=== PATIENT | male | born 1980 | race Caucasian/White ===

== ENCOUNTER → 2022-08-07 17:47 | Outpatient (CLI) | payer OTHER, SELFPAY ==
[2022-08-07 18:18] LABS: Alanine Aminotransferase 28 U/L (12-78); Albumin Level 4.3 g/dl (3.5-5.0); Albumin/Globulin Ratio 1.3 (1.1-1.8); Alkaline Phosphatase 71 U/L (38-126); Aspartate Amino Transferase 36 U/L (17-59); Bilirubin,Total 0.6 mg/dl (0.2-1.3); Blood Urea Nitrogen 11 mg/dl (9-20); Carbon Dioxide 25 mmol/L (22.0-30.0); Chloride 100 mmol/L (98-107); Chol/HDL Ratio 6.1 (1-3.5); Cholesterol 202 mg/dl (140-200); Estimated Glomerular Filt Rate 106 ml/min (>60); GFR (African American) 128 ML/MIN (>60); Globulin 3.3 g/dL (1.3-3.2); Glucose 78 mg/dl (74-100); HDL Cholesterol 33 mg/dl (40-60); Sodium 138 mmol/L (136-145); Total Protein,Serum 7.6 g/dl (6.3-8.2); Triglycerides 192 mg/dl (30-150); VLDL Cholesterol 38 mg/dL (0-40)
[2022-08-07 18:22] LABS: Basophils # 0.1 K/mm3 (0-0.2); Basophils % 0.6 % (0.1-2.0); Eosinophils # 0.2 K/mm3 (0.0-0.4); Eosinophils % 1.3 % (0.1-12.0); Hematocrit 47.6 % (42.0-52.0); Hemoglobin 15.8 g/dL (14.1-18.0); Lymphocytes # 1.7 K/mm3 (0.7-4.5); Lymphocytes % 13.2 % (10-50); Mean Corpuscular HGB Conc 33.3 g/dL (31.8-35.4); Mean Corpuscular Hemoglobin 30.4 pg (27.0-31.2); Mean Corpuscular Volume 91.2 fl (80-94); Mean Platelet Volume 8.1 fl (7.4-10.4); Monocytes # 0.7 K/mm3 (0.1-1.0); Monocytes % 5.6 % (1.7-9.3); Neutrophils % 79.3 % (37.0-80.0); Platelet Count 312 K/mm3 (142-424); Red Blood Count 5.22 M/mm3 (4.60-6.20); Red Cell Distribution Width 13.8 % (11.5-17.5); White Blood Count 12.6 K/mm3 (4.8-10.8)
[2022-08-07 18:30] LABS: Direct LDL Cholesterol 134.26 mg/dL (100-129)
[2022-08-07 18:41] LABS: Hemoglobin A1C 5.2 % (4.0-6.0)
[2022-08-09 12:09] LABS: Testosterone,Total 225 ng/dL (264-916)
== END ==
PROVIDERS: PCP Student in an Organized Health Care Education/Training Program; Visit Provider Student in an Organized Health Care Education/Training Program
DX: I10 Essential (primary) hypertension (principal); R53.83 Other fatigue
CPT/HCPCS: 80053; 80061; 83036; 84403; 84443; 85025

== ENCOUNTER → 2022-08-24 | Outpatient (CLI) | payer OTHER, SELFPAY ==
[2022-08-26 09:09] LABS: Testosterone,Total 175 ng/dL (264-916)
== END ==
PROVIDERS: PCP Family Medicine; Visit Provider Family Medicine
DX: N52.9 Male erectile dysfunction, unspecified (principal)
CPT/HCPCS: 84403

== ENCOUNTER → 2022-12-04 08:03 | Outpatient (CLI) | payer OTHER, SELFPAY ==
--- NOTE | 2022-12-04 08:03 | US_ITS ---
FINAL REPORT CLINICAL HISTORY: epigastric and RUQ pain FINDINGS: Sonographic images of the abdomen were obtained. The liver has increased echogenicity consistent with fatty infiltration. The gallbladder has an unremarkable appearance without evidence of gallstones. There is no evidence of biliary ductal dilatation. The common hepatic duct measures 2 mm, which is within normal limits. Limited images of the pancreas are unremarkable. The spleen is borderline enlarged measuring 12.8 cm in length. The right kidney measures 10.6 cm in length. The left kidney measures 10.9 cm in length. There is normal renal echogenicity. There is no evidence of hydronephrosis. The aorta has an unremarkable appearance. Limited images of the inferior vena cava are unremarkable. IMPRESSION: Fatty liver. Borderline splenomegaly. Reviewed, Interpreted and Dictated by Eligio Ozuna III, MD Transcribed by Arcelia Aldana Authenticated and [facility]
== END ==
LOC: RAD 08:03
PROVIDERS: PCP Family Medicine; Visit Provider Family Medicine
DX: R10.9 Unspecified abdominal pain (principal); I10 Essential (primary) hypertension
CPT/HCPCS: 76700

== ENCOUNTER → 2022-12-27 10:12 | Outpatient (CLI) | payer OTHER, SELFPAY ==
--- NOTE | 2022-12-27 10:12 | NM_ITS ---
FINAL REPORT CLINICAL HISTORY: possible dysfunction of gallbladder 10:55 am 7.96 mci tc choletec injected into lt ant 2.7 mcg of cck no pain during cck neg u/s gb on12/04/22 FINDINGS: Sequential anterior projection images of the abdomen were obtained after the intravenous injection of 7.96 mCi technetium 99m Choletec. There is normal uptake of radiotracer by the liver. The bile ducts are visualized by 5 minutes. Gallbladder activity is seen by 20 minutes. After 1 hour, 2.7 ?g of CCK was injected intravenously for calculation of gallbladder ejection fraction. There is prompt visualization of the bowel. The gallbladder ejection fraction is 66%, which is within normal limits. IMPRESSION: No evidence of cystic duct or bile duct obstruction. Normal gallbladder ejection fraction of 66 %. Reviewed, Interpreted and Dictated by Eligio Ozuna III, MD Transcribed by Arcelia Aldana Authenticated and [facility]
== END ==
LOC: RAD 10:12
PROVIDERS: PCP Family Medicine; Visit Provider Family Medicine
DX: R10.9 Unspecified abdominal pain (principal)
CPT/HCPCS: 78227; A9537; J2805

== ENCOUNTER → 2023-01-03 13:46 | Outpatient (CLI) | payer OTHER, SELFPAY ==
[2023-01-03 13:54] LABS: MANUAL DIFFERENTIAL MANUAL DIFFERENTIAL (MANUAL DIFF)
[2023-01-03 15:04] LABS: Basophils # 0.1 K/mm3 (0-0.2); Basophils % 0.5 % (0.1-2.0); Eosinophils # 0.1 K/mm3 (0.0-0.4); Eosinophils % 0.7 % (0.1-12.0); Hematocrit 47.6 % (42.0-52.0); Hemoglobin 15.9 g/dL (14.1-18.0); Lymphocytes # 1.2 K/mm3 (0.7-4.5); Lymphocytes % 11.3 % (10-50); Mean Corpuscular HGB Conc 33.5 g/dL (31.8-35.4); Mean Corpuscular Hemoglobin 29.2 pg (27.0-31.2); Mean Corpuscular Volume 87.1 fl (80-94); Mean Platelet Volume 7.6 fl (7.4-10.4); Monocytes # 0.6 K/mm3 (0.1-1.0); Monocytes % 5.4 % (1.7-9.3); Neutrophils # 8.9 K/mm3 (1.8-7.8); Platelet Count 344 K/mm3 (142-424); Red Blood Count 5.46 M/mm3 (4.60-6.20); Red Cell Distribution Width 13.9 % (11.5-17.5); White Blood Count 10.9 K/mm3 (4.8-10.8)
[2023-01-03 15:12] LABS: Eosinophils % 2 % (0-3); Lymphocytes % 12 % (10-50); Monocytes % 10 % (2-9); Neutrophils % 76 % (42-76); Platelet Estimate Normal; RBC Morphology Normal; Total Cells Counted 100
[2023-01-03 15:35] LABS: Alanine Aminotransferase 33 U/L (12-78); Albumin Level 4.8 g/dl (3.5-5.0); Albumin/Globulin Ratio 1.4 (1.1-1.8); Alkaline Phosphatase 67 U/L (38-126); Amylase 64 U/L (30-110); Anion Gap 13.9 mEq/L (5-15); Aspartate Amino Transferase 31 U/L (17-59); Blood Urea Nitrogen 12 mg/dl (9-20); Calcium 9.2 mg/dl (8.4-10.2); Carbon Dioxide 26 mmol/L (22.0-30.0); Chloride 100 mmol/L (98-107); Estimated Glomerular Filt Rate 66 ml/min (>60); GFR (African American) 80 ML/MIN (>60); Globulin 3.5 g/dL (1.3-3.2); Glucose 66 mg/dl (74-100); Lipase 83 U/L (23-300); Potassium 3.9 mmoL/L (3.5-5.1); Sodium 136 mmol/L (136-145); Total Protein,Serum 8.3 g/dl (6.3-8.2)
[2023-01-03 16:17] LABS: Hemoglobin A1C 5.2 % (4.0-6.0)
== END ==
LOC: LAB 13:47
PROVIDERS: PCP Family Medicine; Visit Provider Nurse Practitioner
DX: R10.9 Unspecified abdominal pain (principal)
CPT/HCPCS: 36415; 80053; 82150; 83036; 83690; 85007; 85014; 85018; 85048; 85049

== ENCOUNTER 2023-02-21 07:31 | Day surgery (SDC) | payer OTHER, SELFPAY ==
[2023-01-31 12:43] VITALS: BMI 42.8
[2023-02-21 07:59] VITALS: BP 134/84; PULSE 112; RESP 18; TEMP 36.6; O2SAT 95
--- NOTE | 2023-02-21 09:15 | EXP.ANES.CKL ---
[facility] Disclaimer: The information contained in this section may have been updated after the patient was seen, as this information can be updated by other users. Medical History Deficiency of testosterone biosynthesis Dysphagia Previous short Kevin's noted in 2020 Difficulty swallowing and feeling of fullness in back of throat Erectile dysfunction Hypertension Surgical History History of appendectomy Family History Grandmother Stroke Grandfather Cancer Colon CA Father Cancer testicular and breast CA Mother Hypertension Social History Smoking Status: Never smoker alcohol intake: current substance use type: denies use current occupational status: employed Travel in the last 8 weeks: None household members: family housing: house lives independently: Yes marital status: single education level: high school current occupational exposures/hazards: Yes caffeine: Yes special christiane needs: No agree to transfusion: No do you feel safe at home: Yes victim of physical abuse: No victim of emotional abuse: No victim of sexual abuse: No would you like helpful sources: No [facility] Anesthesia Checklist Patient Identification Patient Identification: Arm Band Structural Data Admitted From: Home Planned Operative Procedure/s: EGD/Colonoscopy Consent for Planned Operative Procedure(s) Verified: Yes Verified Documents: Surgical Consent and History and Physical NPO Status Verified Time NPO: 00:00 Additional verifications Anesthesia Reactions: No Airway Assessment C-Spine Mobility Assessed: Yes TMJ Mobility Assessed: Yes Dentition: Good Dentition Neurological Assessment Level of Consciousness: Awake and Alert Anesthesia Plan Anesthesia Risk discussed: Yes Anesthesia Plan: Verified ASA Class: III Anesthesia Type: MAC
[2023-02-21 09:21] VITALS: O2SAT 95
[2023-02-21 09:40] VITALS: BP 135/81; PULSE 92; RESP 18; TEMP 36.2; O2SAT 90
--- NOTE | 2023-02-21 09:40 | HMH.SCOPE ---
Procedure: Date: 02/21/23 Patient Date of :: 1980 Procedure Performed:: EGD Indications:: Chronic GERD Performing Provider:: Lani Cooper MD Referring Provider:: Ronal Yeager MD Sedation:: Propofol Procedure:: The gastroscope was gently passed through the incisoral orifice into the oral cavity and under direct visualization the esophagus was intubated. The endoscope was passed down the esophagus, through the stomach, and into the duodenum. Color, texture, mucosa, and anatomy of the esophagus, stomach, and duodenum were carefully examined with the scope. Findings:: Oropharynx: normal Esophagus: normal EG Junction: intact at 40 cm Cardia: normal Fundus: normal Body: normal Antrum: normal Duodenal bulb: normal Duodenum (second and third portion): normal Impression: Normal EGD No evidence of ulcer disease or hiatus hernia Recommendations:: PPI therapy and life style modifications with BMI management Complications:: None Estimated blood obtained (mL): 0
--- NOTE | 2023-02-21 09:44 | HMH.SCOPE ---
Procedure: Date: 02/21/23 Patient Date of :: 1980 Procedure Performed:: Screening Colonoscopy Indications:: Family history of colon cancer Performing Provider:: Lani Cooper MD Referring Provider:: Leonard Yeager MD Sedation:: Propofol Procedure:: After placing the patient in the left lateral decubitus position, the colonoscopy was gently inserted into the rectum and under direct visualization advanced to the cecum which was identified by transillumination in the right lower quadrant, identification of the ileocecal valve, appendiceal orifice, and cecal strap. Color, texture, mucosa, and anatomy of the colon were carefully examined with the scope. Findings:: Anal canal: normal Rectum: normal Sigmoid colon: normal without polyps or inflammatory changes Descending colon: normal without polyps or inflammatory changes Splenic flexure: normal Transverse colon: normal without polyps or inflammatory changes Hepatic flexure: normal Ascending colon: normal without polyps or inflammatory changes Cecum: normal Terminal ileum: not visualized Impression: Normal colonoscopy Recommendations:: Follow up examination in about FIVE years or so, sooner if clinically indicated. Complications:: None Estimated blood obtained (mL): 0
[2023-02-21 09:55] VITALS: BP 141/76; PULSE 73; RESP 18; O2SAT 97
[2023-02-21 10:05] VITALS: BP 114/86; PULSE 72; RESP 18; O2SAT 96
[2023-02-21 10:30] VITALS: BP 114/84; PULSE 77; RESP 18; O2SAT 97
== END 2023-02-21 10:30 | disposition home or self-care (01) ==
PROVIDERS: PCP Family Medicine; Visit Provider Internal Medicine Gastroenterology
PROC: 0DJ08ZZ Inspection of Upper Intestinal Tract, Via Natural or Artificial Opening Endoscopic (ICD-10-PCS; CPT 43235; principal; 2023-02-21 09:30)
DX: K21.9 Gastro-esophageal reflux disease without esophagitis (principal); Z12.11 Encounter for screening for malignant neoplasm of colon; Z80.0 Family history of malignant neoplasm of digestive organs; Z79.899 Other long term (current) drug therapy
CPT/HCPCS: 45378; 43235

== ENCOUNTER → 2023-07-17 23:16 | Outpatient (CLI) | payer OTHER, SELFPAY ==
[2023-07-17 17:11] LABS: Basophils % 0.4 % (0.1-2.0); Eosinophils # 0.1 K/mm3 (0.0-0.4); Eosinophils % 0.7 % (0.1-12.0); Hematocrit 49.8 % (42.0-52.0); Hemoglobin 16.3 g/dL (14.1-18.0); Lymphocytes # 1.4 K/mm3 (0.7-4.5); Lymphocytes % 12.9 % (10-50); Mean Corpuscular HGB Conc 32.7 g/dL (31.8-35.4); Mean Corpuscular Hemoglobin 29.8 pg (27.0-31.2); Mean Corpuscular Volume 90.9 fl (80-94); Mean Platelet Volume 7.8 fl (7.4-10.4); Monocytes # 0.8 K/mm3 (0.1-1.0); Monocytes % 7.1 % (1.7-9.3); Neutrophils # 8.3 K/mm3 (1.8-7.8); Neutrophils % 78.9 % (37.0-80.0); Platelet Count 270 K/mm3 (142-424); Red Blood Count 5.47 M/mm3 (4.60-6.20); Red Cell Distribution Width 13.9 % (11.5-17.5); White Blood Count 10.5 K/mm3 (4.8-10.8)
[2023-07-17 17:45] LABS: Alanine Aminotransferase 34 U/L (12-78); Albumin Level 4.7 g/dl (3.5-5.0); Albumin/Globulin Ratio 1.4 (1.1-1.8); Alkaline Phosphatase 51 U/L (38-126); Anion Gap 17.5 mEq/L (5-15); Aspartate Amino Transferase 34 U/L (17-59); Bilirubin,Total 1.2 mg/dl (0.2-1.3); Blood Urea Nitrogen 13 mg/dl (9-20); Calcium 9.2 mg/dl (8.4-10.2); Carbon Dioxide 29 mmol/L (22.0-30.0); Chloride 96 mmol/L (98-107); Estimated Glomerular Filt Rate 73 ml/min (>60); GFR (African American) 88 ML/MIN (>60); Globulin 3.4 g/dL (1.3-3.2); Glucose 82 mg/dl (74-100); Potassium 3.5 mmoL/L (3.5-5.1); Sodium 139 mmol/L (136-145); Total Protein,Serum 8.1 g/dl (6.3-8.2)
[2023-07-26 23:09] LABS: Testosterone, Total, LC/MS 183 ng/dL (.)
== END ==
LOC: LAB.DROPOF 23:17
PROVIDERS: PCP Family Medicine; Visit Provider Family Medicine
DX: N52.9 Male erectile dysfunction, unspecified (principal)
CPT/HCPCS: 80053; 84403; 85025

== ENCOUNTER 2023-12-24 12:45 | Outpatient (CLI) | payer BC, SELFPAY ==
--- NOTE | 2023-12-24 12:49 | XR_ITS ---
FINAL REPORT CLINICAL HISTORY: Rt Wrist Pain COMPARISON: None FINDINGS: RIGHT WRIST THREE VIEW FINDINGS: Three views show no evidence of an acute, displaced fracture or dislocation of the visualized bony architecture. The joint spaces appear normal. IMPRESSION: Unremarkable exam. Reviewed, Interpreted and Dictated by Hannah Hutchinson MD Transcribed by Patience Lewis Authenticated and [facility]
== END 2023-12-24 23:59 ==
LOC: RAD 12:46
PROVIDERS: PCP Family Medicine; Visit Provider Orthopaedic Surgery
DX: M25.531 Pain in right wrist (principal)
CPT/HCPCS: 73110

== ENCOUNTER 2024-01-29 16:47 | Outpatient (CLI) | payer BC, SELFPAY ==
[2024-01-29 16:35] LABS: Basophils # 0.1 K/mm3 (0-0.2); Basophils % 0.6 % (0.1-2.0); Eosinophils # 0.1 K/mm3 (0.0-0.4); Eosinophils % 1.3 % (0.1-12.0); Hematocrit 50.3 % (42.0-52.0); Hemoglobin 16.7 g/dL (14.1-18.0); Lymphocytes # 1.3 K/mm3 (0.7-4.5); Lymphocytes % 15.9 % (10-50); Mean Corpuscular HGB Conc 33.2 g/dL (31.8-35.4); Mean Corpuscular Volume 96.5 fl (80-94); Mean Platelet Volume 8.6 fl (7.4-10.4); Monocytes # 0.7 K/mm3 (0.1-1.0); Monocytes % 8.9 % (1.7-9.3); Neutrophils # 5.8 K/mm3 (1.8-7.8); Neutrophils % 73.2 % (37.0-80.0); Platelet Count 312 K/mm3 (142-424); Red Blood Count 5.21 M/mm3 (4.60-6.20); Red Cell Distribution Width 14.2 % (11.5-17.5); White Blood Count 7.9 K/mm3 (4.8-10.8)
[2024-01-29 16:40] LABS: Alanine Aminotransferase 35 U/L (12-78); Albumin Level 4.8 g/dl (3.5-5.0); Albumin/Globulin Ratio 1.7 (1.1-1.8); Alkaline Phosphatase 60 U/L (38-126); Anion Gap 12.9 mEq/L (5-15); Aspartate Amino Transferase 36 U/L (17-59); Bilirubin,Total 0.6 mg/dl (0.2-1.3); Blood Urea Nitrogen 15 mg/dl (9-20); Calcium 9.7 mg/dl (8.4-10.2); Carbon Dioxide 31 mmol/L (22.0-30.0); Chloride 99 mmol/L (98-107); Chol/HDL Ratio 8.1 (1-3.5); Cholesterol 195 mg/dl (140-200); Estimated Glomerular Filt Rate 72 ml/min (>60); GFR (African American) 88 ML/MIN (>60); Globulin 2.9 g/dL (1.3-3.2); Glucose 89 mg/dl (74-100); HDL Cholesterol 24 mg/dl (40-60); Potassium 3.9 mmoL/L (3.5-5.1); Sodium 139 mmol/L (136-145); Total Protein,Serum 7.7 g/dl (6.3-8.2); Triglycerides 219 mg/dl (30-150); VLDL Cholesterol 44 mg/dL (0-40)
[2024-01-29 16:51] LABS: Direct LDL Cholesterol 127.96 mg/dL (100-129)
[2024-01-30 09:29] LABS: Testosterone,Total 206 ng/dL (264-916)
== END 2024-01-29 23:59 ==
LOC: LAB.DROPOF 16:48
PROVIDERS: PCP Family Medicine; Visit Provider Family Medicine
DX: E34.9 Endocrine disorder, unspecified (principal); E29.1 Testicular hypofunction
CPT/HCPCS: 80053; 80061; 84403; 85025

== ENCOUNTER 2024-07-28 15:37 | Outpatient (CLI) | payer BC, SELFPAY ==
[2024-07-28 17:03] LABS: Basophils # 0.1 K/mm3 (0-0.2); Basophils % 0.7 % (0.1-2.0); Eosinophils # 0.2 K/mm3 (0.0-0.4); Eosinophils % 2.9 % (0.1-12.0); Hemoglobin 16.9 g/dL (14.1-18.0); Lymphocytes # 1.1 K/mm3 (0.7-4.5); Lymphocytes % 14.4 % (10-50); Mean Corpuscular HGB Conc 32.5 g/dL (31.8-35.4); Mean Corpuscular Hemoglobin 30.8 pg (27.0-31.2); Mean Corpuscular Volume 94.9 fl (80-94); Mean Platelet Volume 9.3 fl (7.4-10.4); Monocytes # 0.5 K/mm3 (0.1-1.0); Monocytes % 6.5 % (1.7-9.3); Neutrophils # 5.9 K/mm3 (1.8-7.8); Neutrophils % 75.4 % (37.0-80.0); Platelet Count 301 K/mm3 (142-424); Red Blood Count 5.47 M/mm3 (4.60-6.20); Red Cell Distribution Width 14.2 % (11.5-17.5); White Blood Count 7.9 K/mm3 (4.8-10.8)
[2024-07-28 17:35] LABS: Alanine Aminotransferase 21 U/L (12-78); Albumin Level 3.9 g/dl (3.5-5.0); Albumin/Globulin Ratio 1.3 (1.1-1.8); Alkaline Phosphatase 42 U/L (38-126); Anion Gap 10.5 mEq/L (5-15); Aspartate Amino Transferase 25 U/L (17-59); Bilirubin,Total 0.6 mg/dl (0.2-1.3); Blood Urea Nitrogen 9 mg/dl (9-20); Calcium 8.9 mg/dl (8.4-10.2); Carbon Dioxide 29 mmol/L (22.0-30.0); Chloride 102 mmol/L (98-107); Cholesterol 134 mg/dl (140-200); Estimated Glomerular Filt Rate 91 ml/min (>60); GFR (African American) 110 ML/MIN (>60); Glucose 73 mg/dl (74-100); HDL Cholesterol 27 mg/dl (40-60); Potassium 4.5 mmoL/L (3.5-5.1); Sodium 137 mmol/L (136-145); Total Protein,Serum 6.9 g/dl (6.3-8.2); Triglycerides 100 mg/dl (30-150); VLDL Cholesterol 20 mg/dL (0-40)
[2024-07-28 17:46] LABS: Direct LDL Cholesterol 89.74 mg/dL (100-129)
[2024-07-28 18:05] LABS: Thyroid Stimulating Hormone 1.11 uIU/mL (0.465-4.68)
[2024-08-04 15:16] LABS: Testosterone, Total, LC/MS 218.8 ng/dL (264.0-916.0)
== END 2024-07-28 23:59 | disposition home or self-care (01) ==
LOC: LAB.DROPOF 07-29 15:37
PROVIDERS: PCP Family Medicine; Visit Provider Family Medicine
DX: I10 Essential (primary) hypertension (principal); E34.9 Endocrine disorder, unspecified
CPT/HCPCS: 80050; 80053; 80061; 84443; 85025

== ENCOUNTER 2025-01-18 10:27 | Outpatient (CLI) | payer BC, SELFPAY ==
[2025-01-18 17:34] LABS: Basophils % 0.5 % (0.1-2.0); Eosinophils # 0.1 K/mm3 (0.0-0.4); Eosinophils % 1.6 % (0.1-12.0); Hematocrit 51.1 % (42.0-52.0); Hemoglobin 17.1 g/dL (14.1-18.0); Lymphocytes # 1.1 K/mm3 (0.7-4.5); Lymphocytes % 14.5 % (10-50); Mean Corpuscular HGB Conc 33.5 g/dL (31.8-35.4); Mean Corpuscular Hemoglobin 30.5 pg (27.0-31.2); Mean Corpuscular Volume 91.1 fl (80-94); Mean Platelet Volume 10.4 fl (7.4-10.4); Monocytes # 0.6 K/mm3 (0.1-1.0); Monocytes % 7.3 % (1.7-9.3); Neutrophils # 5.8 K/mm3 (1.8-7.8); Platelet Count 272 K/mm3 (142-424); Red Blood Count 5.61 M/mm3 (4.60-6.20); Red Cell Distribution Width 13.2 % (11.5-17.5); White Blood Count 7.7 K/mm3 (4.8-10.8)
[2025-01-18 18:03] LABS: Albumin Level 4.9 g/dl (3.5-5.0); Chloride 100 mmol/L (98-107); Potassium 3.8 mmoL/L (3.5-5.1); Sodium 139 mmol/L (136-145)
[2025-01-18 18:06] LABS: Alanine Aminotransferase 30 U/L (12-78); Alkaline Phosphatase 41 U/L (38-126); Anion Gap 15.8 mEq/L (5-15); Aspartate Amino Transferase 27 U/L (17-59); Bilirubin,Total 0.6 mg/dl (0.2-1.3); Blood Urea Nitrogen 14 mg/dl (9-20); Carbon Dioxide 27 mmol/L (22.0-30.0); Estimated Glomerular Filt Rate 72 ml/min (>60); GFR (African American) 87 ML/MIN (>60)
[2025-01-18 18:16] LABS: Calcium 9.1 mg/dl (8.4-10.2); Chol/HDL Ratio 4.1 (1-3.5); Cholesterol 123 mg/dl (140-200); Globulin 2.5 g/dL (1.3-3.2); HDL Cholesterol 30 mg/dl (40-60); Total Protein,Serum 7.4 g/dl (6.3-8.2); Triglycerides 70 mg/dl (30-150); Uric Acid 5.8 mg/dl (3.5-8.5); VLDL Cholesterol 14 mg/dL (0-40)
[2025-01-18 18:20] LABS: Direct LDL Cholesterol 72.82 mg/dL (100-129)
[2025-01-18 18:21] LABS: Glucose 46 mg/dl (74-100)
[2025-01-18 18:22] LABS: T4 (Thyroxine) 7.6 ug/dl (5.53-11.0)
[2025-01-18 18:35] LABS: Thyroid Stimulating Hormone 0.67 uIU/mL (0.465-4.68)
[2025-01-18 18:45] LABS: HIV Combo NEGATIVE (Negative)
[2025-01-18 18:52] LABS: Hepatitis C Ab Qual. W/ RFX NEGATIVE (Negative)
[2025-01-18 20:03] LABS: Free T4 (Free Thyroxine) 1.25 ng/dl (0.78-2.19)
[2025-01-20 14:05] LABS: Testosterone,Total 762 ng/dL (264-916)
== END 2025-01-18 23:59 | disposition home or self-care (01) ==
LOC: LAB.DROPOF 01-19 18:25
PROVIDERS: PCP Family Medicine; Visit Provider Family Medicine
DX: E34.9 Endocrine disorder, unspecified (principal); N52.9 Male erectile dysfunction, unspecified; Z11.59 Encounter for screening for other viral diseases
CPT/HCPCS: 80053; 80061; 84403; 84436; 84439; 84443; 84550; 85025; 86803; 87389

== ENCOUNTER 2025-03-19 14:58 | Outpatient (CLI) | payer BC, SELFPAY ==
--- OUTSIDE RECORDS SUMMARY | 2025-03-19 15:01 | XMS_ITS | Continuity of Care Document ---
Author Name [facility] Organization [facility] Care Team Providers Care Marketing Co Op Name Role Phone [facility] Unavailable Unavailable Problems Combined list of problems from Department of Defense and Veterans Affairs facilities. It does not include entries that were removed or entered in error. Problem Status Onset Date Problem Type Date of Resolution Comments Source Adjustment Disorder with Mixed Anxiety and Depressed Mood (ICD-9-CM 309.28) Active Condition [place] [facility] Hearing loss * (ICD-9-CM 389.9) Active Condition [place] [facility] INGROWING TOENAIL Inactive Condition pl an removal of edge DoD REACTIVE HYPERTENSION Active Condition vs new essen.; 5 d bp, disc gaol <135/85 [facility] Nail Discoloration Active Condition ingrown [facility] COMMON COLD Inactive Condition DoD Diagnosis: ICD-10-CM H90.3 Sensorineural hearing loss, bilateral Active Diagnosis [place] [facility] Allergies, Adverse Reactions, Alerts Combined list of allergies from Department of Defense and Veterans Affairs facilities. It does not include entries that were removed or entered in error. Substance Category Reaction Severity Reaction type Status Date Reported Comments Source No Known Allergies Drug allergy (disorder) active 8 D. [facility] Immunizations Combined list of available immunizations from the Department of Defense and Veterans Affairs facilities. Immunization Series Date Given Administered By Site Reaction Lot Number CVX Code Drug Ruby Software Developer Status Comments Source anthrax vaccine 6 2006 [id number] [employer] Agustina (MIP) complet ed anthrax vaccine [facility] influenza virus vaccine, live, attenuated, for intranasal use 1 2006 [id number] [employer] (MED) complet ed influenza virus vaccine, live, attenuate d, for intranasa l use [facility] INFLUENZA A & B (HISTORICAL) 2006 88 complet ed [place] [facility] anthrax vaccine 5 2006 UNK 24 [employer] Agustina (MIP) complet ed anthrax vaccine DoD typhoid Vi capsular polysaccharid e vaccine 1 2006 [id number] Sanofi Pasteur ([facility]) complet ed typhoid Vi capsular polysacch aride vaccine DoD TD(ADULT) UNSPECIFIED FORMULATION 2006 139 complet ed [place] [facility] tetanus and diphtheria toxoids, adsorbed, preservative free, for adult use (2 Lf of tetanus toxoid and 2 Lf of diphtheria toxoid) 1 2006 UNK 09 Unknown (UNK) comple t ed tetanus and diphtheri a toxoids, adsorbed, preservat miles free, for adult use (2 Lf of tetanus toxoid and 2 Lf of diphtheri a toxoid) DoD influenza virus vaccine, split virus (incl. purified surface antigen)-reti red CODE 1 2005 UNK 15 Unknown (UNK) comple t ed influenza virus vaccine, split virus (incl. purified surface antigen)- retired CODE DoD typhoid Vi capsular polysaccharid e vaccine 1 2004 UNK 101 Unknown (UNK) comple t ed typhoid Vi capsular polysacch aride vaccine DoD anthrax vaccine 2 2002 UNK 24 [employer] Richardson ([facility]) complet ed anthrax vaccine DoD anthrax vaccine 3 2002 UNK 24 Unknown (UNK) comple t ed anthrax vaccine DoD anthrax vaccine 2 2002 UNK 24 Unknown (UNK) comple t ed anthrax vaccine DoD anthrax vaccine 1 2002 UNK 24 Unknown (UNK) comple t ed anthrax vaccine DoD meningococcal polysaccharid e vaccine (MPSV4) 0 2002 UNK 32 Unknown (UNK) comple t ed meningoco ccal polysacch aride vaccine (MPSV4) DoD vaccinia (smallpox) vaccine 0 2002 [id number] Jessica ([facility]) complet ed vaccinia (smallpox ) vaccine DoD typhoid Vi capsular polysaccharid e vaccine 0 2002 UNK 101 Unknown (UNK) comple t ed typhoid Vi capsular polysacch aride vaccine DoD poliovirus vaccine, inactivated 1 2002 UNK 10 Unknown (UNK) comple t ed polioviru s vaccine, inactivat ed DoD influenza virus vaccine, split virus (incl. purified surface antigen)-reti red CODE 1 2002 UNK 15 Unknown (UNK) comple t ed influenza virus vaccine, split virus (incl. purified surface antigen)- retired CODE DoD hepatitis B vaccine, adult dosage 1 2002 UNK 43 Unknown (UNK) comple t ed hepatitis B vaccine, adult dosage DoD hepatitis A vaccine, adult dosage 1 2002 UNK 52 Unknown (UNK) comple t ed hepatitis A vaccine, adult dosage DoD hepatitis B vaccine, adult dosage 3 2001 UNK 43 Unknown (UNK) comple t ed hepatitis B vaccine, adult dosage DoD hepatitis A vaccine, adult dosage 3 2001 UNK 52 Unknown (UNK) comple t ed hepatitis A vaccine, adult dosage DoD influenza virus vaccine, unspecified formulation 0 1999 UNK 88 Unknown (UNK) comple t ed influenza virus vaccine, unspecifi ed formulati on DoD hepatitis A vaccine, unspecified formulation 0 1997 UNK 85 Unknown (UNK) comple t ed hepatitis A vaccine, unspecifi ed formulati on DoD typhoid vaccine, live, oral 0 1997 UNK 25 Unknown (UNK) comple t ed typhoid vaccine, live, oral DoD yellow fever vaccine 0 1997 UNK 37 Unknown (UNK) comple t ed yellow fever vaccine DoD hepatitis B vaccine, adult dosage 1 1997 UNK 43 Unknown (UNK) comple t ed hepatitis B vaccine, adult dosage DoD hepatitis A vaccine, unspecified formulation 0 1997 UNK 85 Unknown (UNK) comple t ed hepatitis A vaccine, unspecifi ed formulati on DoD trivalent poliovirus vaccine, live, oral 0 1995 UNK 02 Unknown (UNK) comple t ed trivalent polioviru s vaccine, live, oral DoD measles and rubella virus vaccine 0 1995 UNK 04 Unknown (UNK) comple t ed measles and rubella virus vaccine DoD tetanus and diphtheria toxoids, adsorbed, preservative free, for adult use (2 Lf of tetanus toxoid and 2 Lf of diphtheria toxoid) 0 1995 UNK 09 Unknown (UNK) comple t ed tetanus and diphtheri a toxoids, adsorbed, preservat miles free, for adult use (2 Lf of tetanus toxoid and 2 Lf of diphtheri a toxoid) DoD meningococcal polysaccharid e vaccine (MPSV4) 0 1995 UNK 32 Unknown (UNK) comple t ed meningoco ccal polysacch aride vaccine (MPSV4) DoD adenovirus vaccine, type 4, live, oral 0 1995 UNK 54 Unknown (UNK) comple t ed adenoviru s vaccine, type 4, live, oral DoD adenovirus vaccine, type 7, live, oral 0 1995 UNK 55 Unknown (UNK) comple t ed adenoviru s vaccine, type 7, live, oral DoD Encounters Combined list of: 1) Encounters from Department of Veterans Affairs facilities going backup to the last 18 months, not all VA inpatient encounters are included; 2) Encounters from the Department of Defense facilities going backup to 280 months. Location Location Details Encounter Type Encounter Number Reason For Visit Attending Provider ADM Date DC Date Status Disposition Source D. Valentina brown [facility]) OUTPATIENT [id number] COLD/IN GROWN TOENAIL TOYIN CAMEJO 06/14 Released w/o Limitations Valentina urena [facility]) Valentina brown [facility] OUTPATIENT [id number] INGROWN TOENAIL TOYIN CAMEJO 06/16 Released with Work/Duty Limitations Valentina urena [facility]) Valentina brown [facility] OUTPATIENT [id number] F/U ingrown toe-maeve l TOYIN CAMEJO 06/17 Released w/o Limitations Valentina urena [facility] Outpatient Encounter [id number] [facility] HEARING AID XM&SLCTN BINAURL [id number] Diagnos is: ICD-10- CM H90.3 Sensori neural hearing loss, bilater SANDIE Evans 12/04 [place] [facility] HEARING AID FITTING/CH ECKING [id number] Diagnos is: ICD-10- CM H90.3 Sensori neural hearing loss, SANDIE Barone 12/[address] [place] [facility] Outpatient Encounter [id number] 01/27 [place] Outpatient Encounter [id number] FLORENCIOSERGEY KHADAR E 02/01 [place] [facility] Procedures Combined list of: 1) Procedures from Department of Veterans Affairs facilities going back up to thelast 18 months, not all [place] non-surgical procedures are included; 2) All procedures from the Department of Defense facilities. Procedure Procedure Type Code Date Perfomer Comments Jose A parham INDIVIDUAL PSYCHOTHERAPY, INSIGHT ORIENTED, BEHAVIOR MODIFYING AND/OR SUPPORTIVE, IN AN OFFICE OR OUTPATIENT FACILITY, APPROXIMATELY 20 TO 30 MINUTES XONE-DE-FIXK WITH THE PATIENT 04/01/2003 DoD HANDLING AND/OR CONVEYANCE O F SPECIMEN FOR TRANSFER FROM THE OFFICE TO A LABORATORY 04/01/2003 DoD VIS FUNCT SCREEN,AUTOMAT/SEMI-AUTOMAT BILAT QUANT DETERM VISUAL ACUITY,OCULAR ALIGN,COLOR VISION,PSEUDOISOCHROMAT PLATES,& FIELD VIS (MAY INC ALL/SOME SCRN DETERM FOR CONTRAST SENSITIV,VIS UND GLARE) 03/25/2008 DoD VIS FUNCT SCREEN,AUTOMAT/SEMI-AUTOMAT BILAT QUANT DETERM VISUAL ACUITY,OCULAR ALIGN,COLOR VISION,PSEUDOISOCHROMAT PLATES,& FIELD VIS (MAY INC ALL/SOME SCRN DETERM FOR CONTRAST SENSITIV,VIS UND GLARE) 05/01/2007 DoD Social History Combined list of available smoking, tobacco, and other social history from Department of Defense and Veterans Affairs facilities. Social History Type Response Date Comment Jose A parham Tobacco smoking status PAIS V9 LIFETIME NON-USER OF TOBACCO 06/12/2008 [facility] This section is an empty social history section. DoD
--- OUTSIDE RECORDS SUMMARY | 2025-03-19 15:01 | XMS_ITS | Encounter Summary ---
Author Name [facility] Organization [facility] Address [address] [place] [address] Support Name Relationship Address Phone VICKISUMMER AMAYA Next of Kin [address] [place] [phone] CHAUNCEY COHEN Emergency Contact [address] [place], [place] [phone] TAWANDA COHEN Next of Kin [address] [phone] Insurance Providers: All historical and current Section Date Range: From patient's date of to the date document was created. This section includes the names of all active insurance providers for the patient. Insurance Provider Type of Coverage Plan Name Start of Policy Coverage End of Policy Coverage Group Number Member ID Insurance Provider's Telephone Number Policy David's Name Patient's Relationship to Policy David DO NOT USE-TC E REG [id number] TRICA RE STAND CHELO STANDAR D , Selected Encounter This section includes the information on record at [place] for the Encounter. Date/Time Encounter Type Encounter Description Reason Provider Source Feb 01, 2025 10:52 AM Outpatient Encounter [facility] DURAN MATIAS Encounter Template Text not used by [facility] Encounter Notes: All associated encounter notes This section contains the clinical notes associated to the Encounter. Date/Time Encounter Note(s) Provider Source Feb 01, 2025 10:52 AM MENTAL HEALTH SECU RE MESSAGING: LOCAL TITLE: MENTAL HEALTH SECURE MESSAGING STANDARD TITLE: MENTAL HEALTH SECURE MESSAGING DATE OF NOTE: FEB 01, 2025@10:52 ENTRY DATE: FEB 01, 2025@10:52:36 AUTHOR: FLORENCIO,TONIMARIE E EXP COSIGNER: URGENCY: STATUS: COMPLETED ------Original Message ------- Sent: 02/01/2025 10:52 AM ET From: DURAN MATIAS To: JASMIN COHEN Subject: General:Mental Health Good morning, Mr. Cohen: I am reaching out in response to your request to speak with a mental health provider. At your convenience, you can contact me at [phone], [phone] and I'll be happy to assist with coordinating care based on your needs. Please call 911 or the [facility] number at [phone] and press option 1 if you are experiencing any thoughts of suicide or have other emergency needs. We look forward to hearing from you very soon. Sincerely, Duran Matias LCSW Mental Health Armature Winder Rep[employer]per [facility] /jordan/ Duran Matias LCSW Mental Health Country Director Signed: 02/01/2025 10:52 DURAN MATIAS [facility]
--- OUTSIDE RECORDS SUMMARY | 2025-03-19 15:01 | XMS_ITS | Encounter Summary ---
Author Name [facility] Organization [facility] [place] Address [address] [place] [address] Support Name Relationship Address Phone VICKIZULEMA AMAYAA Next of Kin [address] [place], [place] [phone] CHAUNCEY COHEN Emergency Contact [address] [place], [place] [phone] TAWANDA COHEN Next of Kin [address] [place], [place] [phone] Insurance Providers: All historical and current Section [...] Policy David DO NOT USE-TC E REG [id number] TRICA RE STAND CHELO STANDAR D , Selected Encounter This section includes the information on record at [place] for the Encounter. Date/Time Encounter Type Encounter Description Reason Pro vider Source Nov 26, 2024 09:10 AM Outpatient Encounter ADMIN PAT ACTIVTIES (MASNONCT) I[facility] Encounter Template Text not used by [place] Plan of Treatment: Future Appointments (+ 6 months) and Future Tests (+/- 45 days) The Plan of Treatment section includes future care activities for the patient from all VA treatmentfacilities. This section includes future appointments and future orders which are active, pending or scheduled. Future Appointments This section includes appointments that were scheduled to occur 6 months from the date of the Encounter, up to a maximum of 20 appointments. The data comes from all [place] treatment facilities. Appointment Date/Time Appointment Type Appointme nt Facility Name Dec 04, 2024 08:00 AM AMBULATORY - REHAB MEDICIN E [facility] Dec 24, 2024 08:30 AM AMBULATORY - REHAB MEDICIN E [facility] Social History: Smoking Status (Most current) and Tobacco Use (All prior to encounter date) This section includes the most current, and the historical, smoking and tobacco- related health factors from the [place] facility where the Encounter took place. Current Smoking Status This section includes the most current smoking, or tobacco-related health factor, from the [place] facility where the Encounter took place. Date/Time Current Smoking Status Comment Facil zita Jun 12, 2008 02:00 PM V9 LIFETIME NON-USER OF TOBACCO [facility] Encounter Notes: All associated encounter notes This section contains the clinical notes associated to the Encounter. Date/Time Encounter Note(s) Provider Source Nov 26, 2024 09:10 AM ADMINISTRATIVE NOT E: LOCAL TITLE: HEALTH BENEFITS ADMINISTRATIVE NOTE STANDARD TITLE: ADMINISTRATIVE NOTE DATE OF NOTE: NOV 26, 2024@09:10 ENTRY DATE: NOV 26, 2024@09:10:30 AUTHOR: DELIA GALVAN EXP COSIGNER: URGENCY: STATUS: COMPLETED Eligible for enrollment: Yes Watkins has been enrolled and assigned to priority group 3 HBA enrolled Nov [facility] WAS PROCESSED TO BE MAILED ON THE ADDRESS ON RECORD /jordan/ DELIA GALVAN Signed: 11/26/2024 09:11 DELIA GALVAN [facility]
--- OUTSIDE RECORDS SUMMARY | 2025-03-19 15:01 | XMS_ITS | Encounter Summary ---
Author Name [facility] Organization [facility] [place] Address [address] [place] [address] Support Name Relationship Address Phone VICKIZULEMA AMAYAA Next of Kin [address] [place], [place] [id number] CHAUNCEY COHEN Emergency Contact [address] [place], [place] [phone] TAWANDA COHEN Next of Kin [address] [place], [place] [phone] Insurance Providers: All historical and current Section [...] Policy David DO NOT USE-TC E REG [id number] TRICA RE STAND CHELO STANDAR D , Selected Encounter This section includes the information on record at [place] for the Encounter. Date/Time Encounter Type Encounter Description Reason Pro vider Source Jan 27, 2025 07:22 AM Outpatient Encounter ADMIN PAT ACTIVTIES (MASNONCT) IHE Encounter Template Text not used by [place] Social History: Smoking Status (Most current) and Tobacco Use (All prior to encounter date) This section includes the most current, and the historical, smoking and tobacco- related health factors from the [place] facility where the Encounter took place. Current Smoking Status This section includes the most current smoking, or tobacco-related health factor, from the [place] facility where the Encounter took place. Date/Time Current Smoking Status Comment Facil zita Jun 12, 2008 02:00 PM V9 LIFETIME NON-USER OF TOBACCO [facility] Encounter Notes: All associated encounter notes This section contains the clinical notes associated to the Encounter. Date/Time Encounter Note(s) Provider Source Jan 27, 2025 10:24 AM ADDENDUM: LOCAL TITLE: Addendum STANDARD TITLE: ADDENDUM DATE OF NOTE: JAN 27, 2025@10:24:58 ENTRY DATE: JAN 27, 2025@10:24:59 AUTHOR: LIZY COLINDRES EXP COSIGNER: URGENCY: STATUS: COMPLETED Alerting Murtaza Miller LCSW - open access assessment needed. [place] seen in in 2009, not currently receiving primary care services. Please outreach for assessment. Thank you. /es/ LIZY COLINDRES LCSW [employer] Signed: 01/27/2025 10:25 Receipt Acknowledged By: 01/27/2025 10:53 /es/ Casper Miller LCSW [facility] --- Original Document --- 01/27/25 CLERICAL/ADMIN NOTE: pt has requested a MH appt via [employer]. Please contact. Thanks station id: [id number] preferred modality: FACE TO FACE phone number: [phone] email: [email or web address] preferred dates:02/17/2025 PM,02/24/2025 PM,02/26/2025 PM reason code:OTHER_REASON comments:Just wanted to talk to someone about mental health state. nothing too concerning /es/ VERONICA POWELL Signed: 01/27/2025 07:23 Receipt Acknowledged By: 01/27/2025 10:24 /es/ LIZY COLINDRES LCSW [employer] 01/27/2025 ADDENDUM STATUS: UNSIGNED You may not VIEW this UNSIGNED Addendum. LIZY COLINDRES [facility] Jan 27, 2025 07:22 AM ADMINISTRATIVE NOT E: LOCAL TITLE: CLERICAL/ADMIN NOTE STANDARD TITLE: ADMINISTRATIVE NOTE DATE OF NOTE: JAN 27, 2025@07:22 ENTRY DATE: JAN 27, 2025@07:22:41 AUTHOR: VERONICA FUCHS COSIGNER: URGENCY: STATUS: COMPLETED CLERICAL/ADMIN NOTE Has ADDENDA pt has requested a MH appt via [employer]. Please contact. Thanks station id: [id number] preferred modality: FACE TO FACE phone number: [phone] email: [email or web address] preferred dates:02/17/2025 PM,02/24/2025 PM,02/26/2025 PM reason code:OTHER_REASON comments:Just wanted to talk to someone about mental health state. nothing too concerning /jordan/ ANAHI SHILA AMSA Signed: 01/27/2025 07:23 Receipt Acknowledged By: 01/27/2025 10:24 /jordan/ LIZY COLINDRES LCSW [employer] 01/27/2025 ADDENDUM STATUS: COMPLETED Alerting Murtaza Miller LCSW - open access assessment needed. [place] seen in in 2009, not currently receiving primary care services. Please outreach for assessment. Thank you. /michael COLINDRES LCSW [employer] Signed: 01/27/2025 10:25 Receipt Acknowledged By: 01/27/2025 10:53 /michael Miller LCSW [facility] 01/27/2025 ADDENDUM STATUS: COMPLETED This author attempted to reach out to [place] to assess current MH needs/goals and coordinate case as indicated. No answer, HIPAA compliant message left with c/b number. Will make an additional outreach attempt at a later date. /michael Miller LCSW [facility] Signed: 01/27/2025 10:53 02/01/2025 ADDENDUM STATUS: COMPLETED This author made a second attempt to reach out to and assess mental health needs; no answer, HIPAA compliant message left with c/b number. This author also sent a secure message. Will await response from at which time this author will assess MH needs and assist with coordinating care as indicated. /michael Miller LCSW [facility] Signed: 02/01/2025 10:49 [facility]
--- NOTE | 2025-03-19 15:02 | XR_ITS ---
FINAL REPORT CLINICAL HISTORY: left foot pain, great toe FINDINGS: LEFT FOOT Three views were obtained. There is no fracture or dislocation. There are mild hypertrophic changes at the first metatarsal phalangeal joint. Mild hallux valgus deformity is identified. No soft tissue abnormality is identified. IMPRESSION: Mild hypertrophic changes at the first metatarsal phalangeal joint. Reviewed, Interpreted and Dictated by Eliceo Ochoa MD Transcribed by Nancy Cabello Authenticated and [facility]
--- NOTE | 2025-03-19 15:02 | XR_ITS ---
FINAL REPORT CLINICAL HISTORY: right foot pain FINDINGS: RIGHT FOOT Three views were obtained. There is no fracture or dislocation. There are mild hypertrophic changes at the first metatarsal phalangeal joint. Mild hallux valgus deformity is identified. 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 No soft tissue abnormality is identified. IMPRESSION: Mild hypertrophic changes at the first metatarsal phalangeal joint. Reviewed, Interpreted and Dictated by Eliceo Ochoa MD Transcribed by Nancy Cabello Authenticated and [facility]
== END 2025-03-19 23:59 | disposition home or self-care (01) ==
LOC: RAD 15:00
PROVIDERS: PCP Family Medicine; Visit Provider Nurse Practitioner
DX: M79.671 Pain in right foot (principal); M79.672 Pain in left foot
CPT/HCPCS: 73630

== ENCOUNTER 2025-05-03 15:20 | Outpatient (CLI) | payer BC, SELFPAY ==
[2025-05-03 16:36] LABS: Coronavirus 19, PCR Not Detected (NotDetected); Human Rhinovirus Not Detected (NotDetected); Influenza A, PCR Not Detected (NotDetected); Influenza B, PCR Not Detected (NotDetected); Respiratory Syncytial Virus Not Detected (NotDetected)
--- OUTSIDE RECORDS SUMMARY | 2025-05-04 14:43 | XMS_ITS | Continuity of Care Document ---
Author Name [facility] Organization [facility] Care Team Providers Care Skein Dyer Name Role Phone [facility] Unavailable Unavailable Problems Combined list of problems from Department of Defense and Veterans Affairs facilities. It does not include entries that were removed or entered in error. Problem Status Onset Date Problem Type Date of Resolution Comments Source Adjustment Disorder with Mixed Anxiety and Depressed Mood (ICD-9-CM 309.28) Active Condition [place] Hearing loss * (ICD-9-CM 389.9) Active Condition [place] INGROWING TOENAIL Inactive Condition pl an removal of edge DoD REACTIVE HYPERTENSION Active Condition vs new essen.; 5 d bp, disc gaol <135/85 [facility] Nail Discoloration Active Condition ingrown [facility] COMMON COLD Inactive Condition DoD Diagnosis: ICD-10-CM H90.3 Sensorineural hearing loss, bilateral [facility] Allergies, Adverse Reactions, Alerts Combined list of allergies from Department of Defense and Veterans Affairs facilities. It does not include entries that were removed or entered in error. Substance Category Reaction Severity Reaction type Status Date Reported Comments Source No Known Allergies Drug allergy (disorder) active 8 [facility] Immunizations Combined list of available immunizations from the Department of Defense and Veterans Affairs facilities. Immunization Series Date Given Administered By Site Reaction Lot Number CVX Code Drug Search Engine Marketing Strategist Status Comments Source anthrax vaccine 6 2006 [id number] [employer] (MIP) complet ed anthrax vaccine [facility] influenza virus vaccine, live, attenuated, for intranasal use 1 2006 [id number] [employer] (MED) complet ed influenza virus vaccine, live, attenuate d, for intranasa l use [facility] INFLUENZA A & B (HISTORICAL) 2006 88 complet ed [place] [facility] anthrax vaccine 5 2006 UNK 24 [employer] Agustina (MIP) complet ed anthrax vaccine DoD typhoid Vi capsular polysaccharid e vaccine 1 2006 [id number] San[employer]i Pasteur ([facility]) complet ed typhoid Vi capsular polysacch aride vaccine DoD TD(ADULT) UNSPECIFIED FORMULATION 2006 139 complet ed [place] [facility] tetanus and diphtheria toxoids, adsorbed, preservative [...] 2 2002 UNK 24 [employer] ([facility]) complet ed anthrax vaccine DoD [...] (MPSV4) DoD vaccinia (smallpox) vaccine 0 2002 [id number] Jessica ([facility]) complet ed vaccinia (smallpox ) vaccine DoD [...] Date Status Disposition Source D. Valentina brown [facility] OUTPATIENT [id number] COLD/IN GROWN TOENAIL TOYIN CAMEJO 06/14 Released w/o Limitations Valentina urena [facility]) Valentina brown [facility]) OUTPATIENT [id number] INGROWN TOENAIL TOYIN CMAEJO 06/16 Released with Work/Duty Limitations Valentina urena [facility]) Valentina brown [facility]) OUTPATIENT [id number] F/U ingrown toe-maeve l TOYIN CAMEJO 06/17 Released w/o Limitations Valentina urena [facility]) [facility] Outpatient Encounter [id number] 11/[facility] XM&SLCTN BINAURL [id number] Diagnos is: ICD-10- CM H90.3 Sensori neural hearing loss, bilater SANDIE Evans 12/04 [place] [facility] A[facility] FITTING/CH ECKING [id number] Diagnos is: ICD-10- CM H90.3 Sensori neural hearing loss, SANDIE Barone 12/24 [place] [facility] Outpatient Encounter [id number] 01/27 [place] Outpatient Encounter [id number] SERGEY MATIAS 02/01 [place] [facility] Outpatient Encounter [id number] 04/02 [place] Outpatient Encounter [id number] 04/06 [place] [facility] Outpatient Encounter [id number] 04/08 [place] [facility] Outpatient Encounter [id number] 04/08 [place] [facility] Outpatient Encounter [id number] RADHA HOWELL 04/08 [place] [facility] Outpatient Encounter [id number] 04/21 [place] [facility] Outpatient Encounter [id number] 04/21 [place] [facility] Procedures Combined list of: 1) Procedures from Department of [facility] facilities going back up to thelast 18 months, not all VA non-surgical procedures are included; 2) All procedures from the Department of Defense facilities. Procedure Procedure Type Code Date Perfomer Comments Sourc e INDIVIDUAL PSYCHOTHERAPY, INSIGHT ORIENTED, BEHAVIOR MODIFYING AND/OR SUPPORTIVE, IN AN OFFICE OR OUTPATIENT FACILITY, APPROXIMATELY 20 TO 30 MINUTES IDBY-[id number]-YBTA WITH THE PATIENT 04/01/2003 [facility] HANDLING AND/OR CONVEYANCE O F SPECIMEN FOR TRANSFER FROM THE OFFICE TO A LABORATORY 04/01/2003 [facility] VIS FUNCT SCREEN,AUTOMAT/SEMI-AUTOMAT BILAT QUANT DETERM VISUAL [...] Comment Jose A parham Tobacco smoking status NHIS V9 LIFETIME NON-USER OF TOBACCO 06/12/2008 [facility] This section is an empty social history section. DoD
== END 2025-05-03 23:59 | disposition home or self-care (01) ==
LOC: LAB.DROPOF 05-04 14:41
PROVIDERS: PCP Nurse Practitioner Family; Visit Provider Nurse Practitioner Family
DX: R05.9 Cough, unspecified (principal)
CPT/HCPCS: 87631